=== PATIENT | female | born 1970 | race Caucasian/White ===

== ENCOUNTER 2020-03-11 16:00 | Emergency (ER) | payer OTHER ==
--- NOTE | 2020-03-11 17:10 | TELE ---
HPI Do you have fever,cough or shortness of breath?: Yes - General Reason For Visit: COVID19 TEST Time Seen by Provider: 03/11/20 17:05 History Source: Patient Exam Limitations: No Limitations - History of Present Illness Timing/Duration: unsure 03/11/20 17:05 Patient with no significant past medical history present to [facility] urgent care for COVID testing as she wants to make sure she does not have COVID. Patient reports she has been moving around a lot in public and wants to make sure she does not have COVID. Denies fever, chills, shortness of breath, cough. Denies any symptoms at this time. Past History - Medical History Allergies/Adverse Reactions: Allergies Allergy/AdvReac Type Severity Reaction Status Date / Time No Known Allergies Allergy Verified 08/12/12 09:23 Home Medications: Ambulatory Orders Citalopram Hydrobromide [Celexa] 40 mg PO DAILY 08/12/12 S-Adenosylmet/Vit B12/FA/B6 [Alejandro-E Stress Relief Tablet] 1 each PO DAILY 08/12/12 - Psycho-Social/Smoking History Smoking Status: No Smoking History: Never smoked Number of Cigarettes Smoked Daily: 0 Review of Systems - Review of Systems Able to Perform ROS?: Yes Limited [place] proficient: No Constitutional: No: Chills, Fever, Malaise HEENTM: No: Symptoms Reported, See HPI, Eye Pain, Blurred Vision, Tearing, Recent change in vision, Double Vision, Cataracts, Ear Pain, Ocular Prothesis, Ear Discharge, Nose Pain, Nose Congestion, Tinnitus, Nose Bleeding, Hearing Loss, Throat Pain, Throat Swelling, Mouth Pain, Dental Problems, Difficulty Swallowing, Mouth Swelling, Other Respiratory: No: Symptoms reported, See HPI, Cough, Orthopnea, Shortness of Breath, SOB with Exertion, SOB at Rest, Stridor, Wheezing, Productive cough, Hemoptysis, Other Cardiac (ROS): No: Symptoms Reported, See HPI, Chest Pain, Edema, Irregular H eart Rate, Lightheadedness, Palpitations, Syncope, Chest Tightness, Other ABD/GI: No: Symptoms Reported, Nausea, Vomiting Musculoskeletal: No: Symptoms Reported Integumentary: No: Symptoms Reported Neurological: No: Symptoms reported All Other Systems: Reviewed and Negative *Physical Exam - Physical Exam General Appearance: Yes: Nourished, Appropriately Dressed. No: Apparent Distress HEENT: positive: Normal ENT Inspection Respiratory/Chest: negative: Respiratory Distress, Accessory Muscle Use Musculoskeletal: positive: Normal Inspection Extremity: positive: Normal Inspection, Normal Range of Motion Integumentary: positive: Normal Color Neurologic: positive: Fully Oriented, Alert, Normal Mood/Affect, Normal Response, Motor Strength 12/11 - Medical Decision Making 03/11/20 17:06 Patient with no significant past medical history present to [facility] urgent care for COVID testing as she wants to make sure she does not have COVID. Patient reports she has been moving around a lot in public and wants to make sure she does not have COVID. Denies fever, chills, shortness of breath, cough. Denies any symptoms at this time. Exam unremarkable with patient in no acute distress. Discussed with patient self quarantine instructions if symptomatic. Patient advised to go to the [place] for testing .COVID test order placed. Patient stable for discharge Discharge Diagnosis at time of Disposition: Encounter by telehealth for suspected COVID-19 - Referrals - Patient Instructions - Discharge Disposition: HOME Condition at time of Disposition: Stable
== END 2020-03-11 17:10 | disposition home or self-care (01) ==
LOC: JVIRT 16:00
DX: Z11.59 Encounter for screening for other viral diseases (principal)
CPT/HCPCS: Q3014-GT; U0003